=== PATIENT | female | born 1935 | race Caucasian/White ===

== ENCOUNTER 2019-12-26 09:20 | Inpatient (IN) | payer OTHER, BC ==
[2019-12-13 12:35] LABS: HEMATOCRIT 43.6 % (37.0-47.0); HEMOGLOBIN 14.2 gm/dL (12.0-15.0); MCH 32.3 pg (26.0-34.0); MCHC 32.6 g/dL (28.0-37.0); MCV 99.2 fL (80.0-100.0); RBC 4.4 mil/uL (4.20-5.00)
[2019-12-13 12:42] LABS: URINE BILIRUBIN NEGATIVE (Negative); URINE BLOOD NEGATIVE (Negative); URINE CLARITY CLEAR; URINE COLOR YELLOW; URINE GLUCOSE-RANDOM* NEGATIVE (Negative); URINE KETONES NEGATIVE (Negative); URINE LEUKOCYTES-REFLEX NEGATIVE (Negative); URINE NITRITE-REFLEX NEGATIVE (Negative); URINE PROTEIN (DIPSTICK) NEGATIVE (Negative); URINE UROBILINOGEN 0.2 E.U./dl (0.2-1.0)
[2019-12-13 12:47] LABS: ALBUMIN 3.7 g/dL (3.4-5.0); CALCIUM 9.5 mg/dL (8.5-10.1); CREATININE 0.8 mg/dL (0.6-1.0); POTASSIUM 4.6 mmol/L (3.5-5.1); PROTIME 10.1 Seconds (9.3-11.4)
--- NOTE | 2019-12-13 17:12 | EKG ---
[address] [place] [address] ELECTROCARDIOGRAM REPORT Name: ADELA BRITTON Room #: PRE IN [facility]#: [id number] Admission: Attend Phys: Cash Sheikh MD Discharge: Date of : 31 Report #: [id number] THIS REPORT FOR: //name// [facility] Test Date: 2019-12-13 Test Time: 12:37:58 Pat Name: ADELA BRITTON Department: Room: Gender: F Cruise Director: AMY SERRANO : 1935 Requested By: Cash Sheikh Order Number: [id number] MD: Denys Agosto Measurements Intervals [place] Rate: 76 P: 41 MO: 167 QRS: 14 QRSD: 98 T: 46 QT: 393 QTc: 442 Interpretive Statements Sinus rhythm Normal tracing No previous ECG available for comparison Electronically Signed On 12-13-2019 17:11:15 [employer]PERVISOR [employer]IL[employer]ER by Denys Agosto [email or web address] <ELECTRONICALLY SIGNED> By: Denys Agosto MD, [facility] 12/13/19 1711 1237 1237 Denys Agosto MD, FACC /EPI
[~2019-12-26] VITALS: Ht 170.2 cm; Wt 90.7 kg
--- NOTE | ~2019-12-26 | O ---
[facility] [place] [address] OPERATIVE REPORT Name: ADELA BRITTON Room #: 444-P ADM IN M.R.#: [id number] Admission: 12/26/19 Attend Phys: Cash Sheikh MD Discharge: Date of : 31 Report #: [id number] THIS REPORT FOR: cc: Bruno Lopes MD, David P. MD Abraham,Cash Ramirez MD ~ THIS REPORT FOR: //name// CC: Bruno Sheikh DATE OF SERVICE: 12/26/2019 PREOPERATIVE DIAGNOSIS: Left knee osteoarthritis, status post remote medial compartment knee arthroplasty. POSTOPERATIVE DIAGNOSIS: Left knee osteoarthritis, status post remote medial compartment knee arthroplasty. PROCEDURE: Conversion of a left medial compartment knee arthroplasty to total knee arthroplasty using Navio robotic assistance. SURGEON: Cash Sheikh MD. STRIPPER AND TAPER: Danisha Boone PA-C. INDICATIONS FOR STRIPPER AND TAPER: Throughout the case, extensive retraction and manipulation of the knee was required. This was afforded to me by my assistant store leader. ANESTHESIA: LMA with an adductor canal block. IMPLANTS: Doll and Nephew size 6 narrow Legion cobalt chrome posterior stabilized femur, size 4 tibia, size 15 constrained polyethylene and size 35 patella. TOURNIQUET TIME: 81 minutes. ESTIMATED BLOOD LOSS: 25 mL. COMPLICATIONS: There was a small skin tear of the medial ankle was noted after taking down the operative drapes. This was washed out and repaired with nylon suture. SPECIMENS: None. CONDITION UPON LEAVING THE OPERATING ROOM: Stable. [facility] [place] [address] OPERATIVE REPORT Name: ADELA BRITTON Room #: 444-P [facility] IN .R.#: [id number] Admission: 12/26/19 Attend Phys: Cash Sheikh MD Discharge: Date of : 31 Report #: [id number] INDICATIONS FOR PROCEDURE: The patient is an 84-year-old female who has previously had a left medial compartment knee arthroplasty. This was approximately 10 years ago. She has gone on to have progressive pain in her left knee with x-rays showing to have a complete loss of lateral joint space and progression of lateral and patellofemoral arthritis. After discussion with her, she elected for conversion of her medial compartment knee arthroplasty to total knee arthroplasty. DESCRIPTION OF PROCEDURE: Risks, benefits, alternatives, complications were discussed in detail with the patient including but not limited to risk of anesthesia, risk of damage to nerves, arteries, blood vessels, risk for infection, bleeding, risk for continued knee pain and need for reoperation. Informed consent was obtained from the patient. Left knee was appropriately marked in the preoperative holding area. IV Ancef was given for preoperative antibiotics. Adductor canal block was placed by Anesthesia. She was brought to the operating room and placed in the supine position on the operating room table. LMA anesthesia was induced without complication. Tourniquet was placed on the left thigh. Left lower extremity was prepped and draped in normal sterile fashion. Timeout was performed properly identifying the patient and procedure as well as the instrumentation and implants. All in the operating room were in agreement. Left lower extremity was exsanguinated, tourniquet was inflated. Tourniquet time was 81 minutes. Standard midline approach to the knee was made with a 10 blade through the skin. Dissection was taken down sharply to the fascia and deep flaps were developed medially and laterally. Fresh 10 blade was used to make a medial parapatellar arthrotomy and the knee was inspected. There was an obvious arthritic change of the patellofemoral as well as the lateral compartment with a previously placed medial compartment arthroplasty. ACL and PCL were removed sharply. Reference pins were placed in the femur and the tibia and the knee was then digitally mapped using the Herzio robotic system. Intraoperative plan was made and we sized a size 6 femur with a size 4 tibia, a size 13 polyethylene. After acceptance of the intraoperative plan, the previously placed unicompartmental arthroplasty components were removed with osteotomes. The Navio bur was then used to make the distal femoral resection. The 4-in-1 cutting block was placed. Anterior, posterior and chamfer cuts were made. Attention was then turned to the tibia. Tibial resection guide was pinned in place using the Navio for placement. Tibial resection was made. After this, flexion and extension gaps were checked and found to have good balance in flexion and extension with a 15 spacer. After this, tibia was sized, found to be a size 4. Size 4 tibial trial was placed, pinned and punched. A size 6 femoral trial was placed and the box cut was made. This was then trialed with a 15 polyethylene. We found that the 15 constrained polyethylene had the best stability given the valgus nature of her knee and the chronic stretching of her MCL. A 9 mm was resected from the posterior surface of the patella and a size 35 patellar trial button was placed. Knee was taken through range of motion, found to be stable, found to have good patellar [facility] [address] [place] [address] OPERATIVE REPORT Name: ADELA BRITTON Room #: 444-P ADM IN M.R.#: [id number] Admission: 12/26/19 Attend Phys: Cash Sheikh MD Discharge: Date of : 31 Report #: [id number]. Trial components were then removed. Bony ends were thoroughly irrigated with normal saline. A final size 4 tibia, size 6 narrow Legion cobalt chrome posterior stabilized femur and a size 35 patella were cemented in place using standard cementation techniques. While the cement cured, a periarticular injection consisting of morphine, ropivacaine, epinephrine and Toradol was placed around the knee joint capsule. After the cement cured, the tourniquet was deflated. Hemostasis was obtained with Bovie cautery. Final size 15 constrained polyethylene was placed. A gram of vancomycin was placed deep in the joint. Fascia was closed with 0 Vicryl, skin was closed with 2-0 Vicryl, skin staple and a ULICES dressing was applied. After taken down the operative drapes, there was noted to be a skin tear of the skin and soft tissue of the medial ankle. This was irrigated and closed primarily with nylon suture and Dermabond. Soft dressing was applied to this area. The patient tolerated this procedure well and went to recovery room under care of anesthesia postoperatively. By: 1649 1740 Cash Sheikh MD /nt
[~2019-12-26 09:20] MED LIST: ACETAMINOPHEN500 M1 PO; ASA81BEC PO; CALCIUM + VITA1 EACH PO; HYDROXYZINE HCL25 M2 PO; HYOSCYAMINE0.375 MG PO; LIPITOR 20 MG T20 M1 PO; PRESERVISION A1 EAC2 PO; TOPROL XL100 MG PO; TRAMADOL 50 MG50 MG PO
[2019-12-26 10:46] VITALS: BP 157/63
[2019-12-26 15:10] VITALS: BP 171/60
[2019-12-26 17:10] VITALS: BP 171/60
--- NOTE | 2019-12-26 18:30 | NUR ---
PT RECEIVED FROM REC RM AT 1620 ALERT AND IN NO ACUTE DISTRESS. PT LT KNEE ULICES DSNG D&I. TEACHING DONE RE ULICES. DENIED NAUSEA. ATE SOME DINNER. NO C/O PAIN. HOPING TO GO HOME TOMORROW. NO VOID YET.
[2019-12-26 19:40] VITALS: BP 149/62
--- NOTE | 2019-12-27 01:49 | NUR ---
ASSUMED PT CARE AT APPROX 1900.PT DENIED PAIN SO FAR.UP WITH ASSIST X1,GAIT BELT AND WALKER TO [facility].PT DENEIED PAIN SO FAR.DRSG ON HER L KNEE C/D/I.SCD AND LAUREN HOSE IN PLACE.PY CONT ON IVF AND IV ABX ORDERED.PT ABLE TO MAKE HER NEEDS KNOWN.FALL PRECAUTIONS IN PLACE,CALL LIGHT WITHIN REACH.
[2019-12-27 04:30] VITALS: BP 122/42
[2019-12-27 06:03] LABS: HEMATOCRIT 37.4 % (37.0-47.0); MCV 100.1 fL (80.0-100.0); RBC 3.74 mil/uL (4.20-5.00); RDW 13.1 % (10.5-14.5); WBC 11.4 thou/uL (4.0-11.0)
[2019-12-27 08:13] VITALS: BP 118/50
[2019-12-27] MEDS ORDERED: ASA81BEC PO (09:27)
[2019-12-27] MEDS ORDERED: NEURONTIN 300300 M1 PO (09:27)
--- NOTE | 2019-12-27 13:48 | NUR ---
PT CARE ASSUMED AT 0700. A&Ox4. PT IS UP WITH GAIT BELT AND A WALKER. PAIN IS VERY WELL MANAGED WITH MINIMAL PAIN MEDICATION. AWAITING DISCHARGE AFTER PT CLEARANCE. ULICES DRESSING INTACT. LAUREN HOSES AND SCD'S IN PLACE. PT UP TO THE RECLINER FOR BREAKFAST AND PT. POLARPACK IN PLACE. PT NO LONGER COMPLAINING OF HER THROAT HURTING. FLUIDS DC'D. IV PATENT WITH NO REDNESS OR EDEMA. FALL PROTOCOL IN PLACE. CALL LIGHT IN REACH. AT BED SITE.
[2019-12-27 14:36] VITALS: BP 118/50
== END 2019-12-27 16:38 | disposition home or self-care (01) | DRG 468 ==
LOC: PRE 09:20 → TBA 09:31 → 4S 09:47 → TBA 09:47 → PRE 12:31 → TBA 15:52 → 4S 16:46 → TBA 22:02 → ENTRNSPT 12-27 15:30 → EDTRNSPTSTS 12-27 15:37 → 4S 12-27 16:38
PROVIDERS: ADMIT Orthopaedic Surgery
PROC: 0SRD0J9 Replacement of Left Knee Joint with Synthetic Substitute, Cemented, Open Approach (ICD-10-PCS; principal; 2019-12-26)
PROC: 0SPD0LZ Removal of Medial Unicondylar Synthetic Substitute from Left Knee Joint, Open Approach (ICD-10-PCS; principal; 2019-12-26)
DX: M17.12 Unilateral primary osteoarthritis, left knee (principal); Z79.82 Long term (current) use of aspirin; Z79.899 Other long term (current) drug therapy
CPT/HCPCS: 10102; 50010; 50101; 50415; 50954; 51130; 51225; 51320; 51412; 52001; 52282; 53000; 53078; 53364; 54118; 56527; 56528; 57095; 57103; 57110; 57127; 57180; 62110; 62900; 64043; 65060; 70005